=== PATIENT | male | born 1955 ===

== ENCOUNTER 2022-01-14 11:54 | Inpatient (IN) | payer MEDICARE ==
[~2022-01-14] VITALS: Ht 180.3 cm; Wt 135.0 kg
[2022-01-14 13:58] LABS: BASOPHILS ABSOLUTE AUTO 0.06 K/mm3 (0.00-0.23); BASOPHILS PERCENT AUTO 1 % (0-2); EOSINOPHILS ABSOLUTE AUTO 0.17 K/mm3 (0.00-0.68); EOSINOPHILS PERCENT AUTO 2 % (0-6); Hematocrit 32.8 % (37.0-53.0); Hemoglobin 10.8 g/dL (13.5-17.5); IMMATURE GRAN ABSOLUTE AUTO 0.07 K/mm3 (0.00-0.10); IMMATURE GRAN PERCENT AUTO 1 % (0-1); LYMPHOCYTES ABSOLUTE AUTO 0.97 K/mm3 (0.84-5.20); LYMPHOCYTES PERCENT AUTO 12 % (21-46); MONOCYTES ABSOLUTE AUTO 0.77 K/mm3 (0.16-1.47); MONOCYTES PERCENT AUTO 9 % (4-13); Mean Corpuscular HGB 32.9 pg (26.0-34.0); Mean Corpuscular HGB Conc 32.9 g/dL (31.5-36.5); Mean Corpuscular Volume 100 fL (80-100); Mean Platelet Volume 9.9 fL (9.1-12.4); NEUTROPHILS ABSOLUTE AUTO 6.25 K/mm3 (1.96-9.15); NEUTROPHILS PERCENT AUTO 75 % (41-73); Platelet Count 282 K/mm3 (150-400); RDW Coefficient Variation 14.9 % (11.7-14.2); RDW Standard Deviation 54.2 fL (35.1-46.3); Red Blood Cell Count 3.28 M/mm3 (4.30-5.90); White Blood Cell Count 8.29 K/mm3 (4.00-11.30)
[2022-01-14 14:20] LABS: Albumin, Blood 3.1 g/dL (3.4-5.0); Anion Gap 7 mmol/L (6-16); Blood Urea Nitrogen 58 mg/dL (8-24); Bun/Creatinine Ratio 7.6 (12.0-20.0); CO2, Blood 23 mmol/L (21-32); CPK Creatine Kinase 175 U/L (39-308); Calcium, Blood 8.9 mg/dL (8.5-10.1); Chloride, Blood 108 mmol/L (98-108); Creatinine, Blood 7.59 mg/dL (0.60-1.20); Glomerular Filtration Rate 7 (60-); Glucose, Blood 164 mg/dL (70-99); Phosphorus, Blood 3.6 mg/dL (2.5-4.9); Potassium, Blood 5.4 mmol/L (3.5-5.5); Sodium, Blood 138 mmol/L (136-145); Uric Acid, Blood 5.6 mg/dL (3.5-7.2)
[2022-01-14 14:23] LABS: Albumin, Blood 3.1 g/dL (3.4-5.0); Anion Gap 7 mmol/L (6-16); Blood Urea Nitrogen 57 mg/dL (8-24); Bun/Creatinine Ratio 7.9 (12.0-20.0); CO2, Blood 21 mmol/L (21-32); Chloride, Blood 109 mmol/L (98-108); Creatinine, Blood 7.26 mg/dL (0.60-1.20); Glomerular Filtration Rate 8 (60-); Glucose, Blood 166 mg/dL (70-99); Phosphorus, Blood 3.6 mg/dL (2.5-4.9); Potassium, Blood 5.4 mmol/L (3.5-5.5); Sodium, Blood 137 mmol/L (136-145)
--- NOTE | 2022-01-14 17:54 | NUR ---
1345 - PT ARRIVED FROM [facility]IA [facility]. REPORT RECEIVED FROM SENDING HOSPITAL RN AND [facility] STAFF. PT ORIENTED X4 ON ARRIVAL, SLIGHT HYPERTENSIVE WHICH HAS BEEN TREND. INDEPENDENT IN ROOM. PT ORIENTED TO ROOM AND CALL LIGHT, VITALS OBTAINED AND TELEMETRY PLACED ON PT. NOTIFIED DR. ALMENDAREZ VIA PHONE OF PATIENT ARRIVAL.
[2022-01-14 18:01] LABS: Eosinophils-Raw #,Urine 0
[2022-01-14 19:00] LABS: Albumin, Blood 3.3 g/dL (3.4-5.0); Albumin/Globulin Ratio 0.8 (0.8-1.8); Bilirubin, Direct 0.1 mg/dL (0.0-0.3); Bilirubin, Indirect 0.2 mg/dL (0.1-0.7); Bilirubin, Total 0.3 mg/dL (0.1-1.0); Globulin, Blood 3.9 g/dL (2.2-4.0); Total Protein, Blood 7.2 g/dL (6.4-8.2)
[2022-01-14] MEDS ORDERED: CLIN150 PO (19:01)
[2022-01-14] MEDS ORDERED: TIZA4 PO (19:01)
[2022-01-14] MEDS ORDERED: MONT10T PO (19:02)
[2022-01-14] MEDS ORDERED: EPLE25 PO (19:02)
[2022-01-14] MEDS ORDERED: FURO80 PO (19:02)
[2022-01-14] MEDS ORDERED: CARV25 PO (19:03)
[2022-01-14] MEDS ORDERED: ALLO300 PO (19:03)
[2022-01-14] MEDS ORDERED: Hytrin1 MG PO (19:04)
[2022-01-14] MEDS ORDERED: LOSA50 PO (19:04)
[2022-01-14] MEDS ORDERED: ATOR40TA PO (19:04)
[2022-01-14] MEDS ORDERED: GABA300 PO ×2 (19:05→19:06)
[2022-01-14] MEDS ORDERED: METF500 PO (19:06)
[2022-01-14] MEDS ORDERED: FISH OIL-VIT D1 EACH PO (19:07)
[2022-01-14] MEDS ORDERED: C COMPLEX1000 M1 PO (19:07)
[2022-01-14] MEDS ORDERED: TOCO1000 PO (19:07)
[2022-01-14] MEDS ORDERED: Vitamin B-Comp1 EAC7 PO (19:08)
[2022-01-14] MEDS ORDERED: MAGNESIUM OXID500 MG PO (19:08)
[2022-01-14] MEDS ORDERED: ASPI81CH PO (19:37)
[2022-01-14] MEDS ORDERED: TRESIBA FL100 UNIT/2 SC (22:53)
[2022-01-15 08:15] LABS: Albumin, Blood 3.2 g/dL (3.4-5.0); Anion Gap 13 mmol/L (6-16); Blood Urea Nitrogen 58 mg/dL (8-24); Bun/Creatinine Ratio 8.5 (12.0-20.0); CO2, Blood 21 mmol/L (21-32); Calcium, Blood 9.2 mg/dL (8.5-10.1); Chloride, Blood 104 mmol/L (98-108); Creatinine, Blood 6.82 mg/dL (0.60-1.20); Glomerular Filtration Rate 8 (60-); Glucose, Blood 211 mg/dL (70-99); Magnesium, Blood 2.5 mg/dL (1.6-2.4); Phosphorus, Blood 4.3 mg/dL (2.5-4.9); Potassium, Blood 4.9 mmol/L (3.5-5.5); Sodium, Blood 138 mmol/L (136-145)
--- NOTE | 2022-01-15 17:10 | NUR ---
SHIFT SUMMARY PT HAS BEEN RESTING QUIETLY IN ROOM, THEY HAVE SPENT MOST OF THE DAY UP IN THE CHAIR. PT HAS AMBULATED INDEPENDENTLY TO RESTROOM. PT HAS DENIED C/O PAIN OR DISCOMFORT. BLOOD PRESSURE CAME DOWN TO 138/67 AFTER PO MEDICATION.
--- NOTE | 2022-01-15 22:19 | NUR ---
CARE ASSUMPTION: PATIENT A&O X4, SITTING IN CHAIR, VS WNL ON RA. HS CBG 291. PATIENT INDEPENDENT IN ROOM. 24 HR URINE COLLECTION IN PROGRESS - COLLECTION ICE REPLACED AND ADDITIONAL JUGS BROUGHT TO ROOM. PATIENT PLEASANT AND COOPERATIVE WITH CARE. CALL LIGHT IN REACH.
[2022-01-16 04:14] LABS: BASOPHILS ABSOLUTE AUTO 0.05 K/mm3 (0.00-0.23); BASOPHILS PERCENT AUTO 1 % (0-2); EOSINOPHILS ABSOLUTE AUTO 0.34 K/mm3 (0.00-0.68); EOSINOPHILS PERCENT AUTO 4 % (0-6); Hematocrit 32.3 % (37.0-53.0); IMMATURE GRAN ABSOLUTE AUTO 0.05 K/mm3 (0.00-0.10); IMMATURE GRAN PERCENT AUTO 1 % (0-1); LYMPHOCYTES ABSOLUTE AUTO 1.12 K/mm3 (0.84-5.20); LYMPHOCYTES PERCENT AUTO 14 % (21-46); MONOCYTES ABSOLUTE AUTO 0.74 K/mm3 (0.16-1.47); MONOCYTES PERCENT AUTO 9 % (4-13); Mean Corpuscular HGB 33.3 pg (26.0-34.0); Mean Corpuscular HGB Conc 34.1 g/dL (31.5-36.5); Mean Corpuscular Volume 98 fL (80-100); Mean Platelet Volume 10.2 fL (9.1-12.4); NEUTROPHILS ABSOLUTE AUTO 5.87 K/mm3 (1.96-9.15); NEUTROPHILS PERCENT AUTO 72 % (41-73); Platelet Count 292 K/mm3 (150-400); RDW Coefficient Variation 14.8 % (11.7-14.2); White Blood Cell Count 8.17 K/mm3 (4.00-11.30)
[2022-01-16 04:30] LABS: Albumin, Blood 3.3 g/dL (3.4-5.0); Anion Gap 9 mmol/L (6-16); Blood Urea Nitrogen 64 mg/dL (8-24); Bun/Creatinine Ratio 10.5 (12.0-20.0); CO2, Blood 26 mmol/L (21-32); Calcium, Blood 9.2 mg/dL (8.5-10.1); Chloride, Blood 102 mmol/L (98-108); Glomerular Filtration Rate 9 (60-); Glucose, Blood 251 mg/dL (70-99); Magnesium, Blood 2.6 mg/dL (1.6-2.4); Phosphorus, Blood 5.6 mg/dL (2.5-4.9); Sodium, Blood 137 mmol/L (136-145)
--- NOTE | 2022-01-16 05:25 | NUR ---
SHIFT SUMMARY: PATIENT DENIES PAIN OR DISCOMFORT, INDEPENDENT IN ROOM, STAYED IN RECLINER EXCEPT TO TOILET. 24-HR URINE COLLECTION IN PROGRESS - ICE REPLACED NEEDED. MEDICATED PER EMAR. PLEASANT AND COOPERATIVE WITH CARE. MAKES NEEDS KNOWN DURING ROUNDING, BUT HAS NOT USED CALL LIGHT. CALL LIGHT IN REACH. WILL CONTINUE TO MONITOR UNTIL REPORT TO DAY RN.
[2022-01-16 11:40] LABS: Protein, Urine Quantitative 136.2 mg/dL (0.0-11.9)
--- NOTE | 2022-01-16 16:57 | NUR ---
SHIFT SUMMARY PT HAS BEEN INDEPENDENT ROOM. PT HAS BEEN UP TO THE RESTROOM NEEDED. THEY SPENT A MAJORITY OF THE DAY UP IN THE CHAIR. VITAL SIGNS HAVE REMAINED STABLE WITH NO CHANGES IN CONDITION. PT HAS EXPRESSED CONCERN OVER TRAVEL ARRANGEMENTS TO GET HOME AT DISCHARGE.
--- NOTE | 2022-01-16 20:58 | NUR ---
CARE ASSUMPTION: PATIENT IN CHAIR, A&O X4, VS WNL ON RA. URINE COLLECTION WAS COMPLETE THIS MORNING - ORDERS TO CONTINUE STRICT I/O. PATIENT DENIES CHEST PAIN, SOB, OR OTHER DISCOMFORT. CALL LIGHT IN REACH.
[2022-01-17 04:25] LABS: BASOPHILS ABSOLUTE AUTO 0.06 K/mm3 (0.00-0.23); BASOPHILS PERCENT AUTO 1 % (0-2); EOSINOPHILS ABSOLUTE AUTO 0.28 K/mm3 (0.00-0.68); EOSINOPHILS PERCENT AUTO 3 % (0-6); Hematocrit 31.2 % (37.0-53.0); Hemoglobin 10.7 g/dL (13.5-17.5); IMMATURE GRAN ABSOLUTE AUTO 0.08 K/mm3 (0.00-0.10); IMMATURE GRAN PERCENT AUTO 1 % (0-1); LYMPHOCYTES ABSOLUTE AUTO 1.44 K/mm3 (0.84-5.20); LYMPHOCYTES PERCENT AUTO 15 % (21-46); MONOCYTES ABSOLUTE AUTO 0.82 K/mm3 (0.16-1.47); MONOCYTES PERCENT AUTO 9 % (4-13); Mean Corpuscular HGB 33.4 pg (26.0-34.0); Mean Corpuscular HGB Conc 34.3 g/dL (31.5-36.5); Mean Corpuscular Volume 98 fL (80-100); Mean Platelet Volume 10.6 fL (9.1-12.4); NEUTROPHILS ABSOLUTE AUTO 6.98 K/mm3 (1.96-9.15); NEUTROPHILS PERCENT AUTO 72 % (41-73); Platelet Count 293 K/mm3 (150-400); RDW Coefficient Variation 14.7 % (11.7-14.2); RDW Standard Deviation 52.4 fL (35.1-46.3); White Blood Cell Count 9.66 K/mm3 (4.00-11.30)
[2022-01-17 05:11] LABS: Albumin, Blood 3.4 g/dL (3.4-5.0); Anion Gap 10 mmol/L (6-16); Blood Urea Nitrogen 74 mg/dL (8-24); CO2, Blood 25 mmol/L (21-32); Calcium, Blood 9.3 mg/dL (8.5-10.1); Chloride, Blood 100 mmol/L (98-108); Creatinine, Blood 5.69 mg/dL (0.60-1.20); Glomerular Filtration Rate 10 (60-); Glucose, Blood 235 mg/dL (70-99); Magnesium, Blood 2.5 mg/dL (1.6-2.4); Phosphorus, Blood 5.7 mg/dL (2.5-4.9); Potassium, Blood 4.6 mmol/L (3.5-5.5); Sodium, Blood 135 mmol/L (136-145)
--- NOTE | 2022-01-17 05:58 | NUR ---
SHIFT SUMMARY: PATIENT A&O X4, VS WNL, DENIES CHEST PAIN/SOB/N/V/D OR OTHER DISCOMFORT. PATIENT INDEPENDENT IN ROOM. MAINTAINED STRICT I/OS. PLEASANT AND COOPERATIVE WITH CARE. SLEPT IN RECLINER BUT DECLINES ELEVATING FEET. NO NOTABLE IMPROVEMENT IN BLE EDEMA. MEDICATED PER EMAR. CALL LIGHT IN REACH. WILL CONTINUE TO MONITOR UNTIL REPORT TO DAY RN.
--- NOTE | 2022-01-17 17:35 | NUR ---
SHIFT SUMMARY PT HAS BEEN RESTING QUIETLY IN ROOM. PT SPENT A MAJORITY OF THE DAY UP IN THE CHAIR, THEY AMBULATED INDEPENDENTLY TO THE RESTROOM NEEDED. PT CALLED APPROPRIATELY FOR ASSISTANCE AND WAS COOPERATIVE WITH ALL CARE. PT DECLINED A SHOWER CITING CONCERNS OVER LOWER EXTREMITY CELLULITIS, THIS RN ATTEMPTED TO EDUCATE PT AND ASSUAGE THEIR CONCERNS. VITAL SIGNS STABLE, NO OTHER CHANGES IN CONDITION.
--- NOTE | 2022-01-18 00:01 | NUR ---
CARE ASSUMPTION: PATIENT IN CHAIR, DECLINES RAISING LEGS. INDEPENDENT IN ROOM. VS WNL. MED NO TELE STATUS. A&O X4. WANTS TO ASK DR. ROY QUESTIONS IN THE AM REGARDING HIS LENGTH OF STAY AND CARE PLAN. CALL LIGHT IN REACH.
[2022-01-18 06:25] LABS: Hematocrit 33.2 % (37.0-53.0); Hemoglobin 11.2 g/dL (13.5-17.5)
[2022-01-18 06:35] LABS: Albumin, Blood 3.6 g/dL (3.4-5.0); Anion Gap 12 mmol/L (6-16); Blood Urea Nitrogen 87 mg/dL (8-24); Bun/Creatinine Ratio 14.7 (12.0-20.0); CO2, Blood 26 mmol/L (21-32); Calcium, Blood 9.2 mg/dL (8.5-10.1); Chloride, Blood 98 mmol/L (98-108); Creatinine, Blood 5.91 mg/dL (0.60-1.20); Glomerular Filtration Rate 10 (60-); Glucose, Blood 173 mg/dL (70-99); Magnesium, Blood 2.6 mg/dL (1.6-2.4); Phosphorus, Blood 6.3 mg/dL (2.5-4.9); Potassium, Blood 4.1 mmol/L (3.5-5.5); Sodium, Blood 136 mmol/L (136-145)
[2022-01-18 15:10] LABS: IMMUNOGLOBULIN A, QN, SERUM 204 mg/dL (61-437); IMMUNOGLOBULIN G, QN, SERUM 757 mg/dL (603-1613); IMMUNOGLOBULIN M, QN, SERUM 34 mg/dL (20-172)
--- NOTE | 2022-01-18 17:45 | NUR ---
SHIFT SUMMARY; ASSUMED CARE AT 0700. A/A/OX4 DURING SHIFT. SAT IN RECLINER MOST OF DAY. SHOWER TODAY AND LINEN CHANGE. RIGHT LEG CELLULITIS WITH REDNESS DECREASING. NON WHEEPING EDEMA BILATERALLY. PT STATES EDEMA IS MUCH IMPROVED FROM PREVIOUS DAYS. ENCOURAGED ELEVATING LEGS. INSULIN PER EMAR. VSS, NO ACUTE MEDICAL CHANGES DURING SHIFT. WILL CONTINUE TO MONITOR AND TREAT UNTIL CHANGE OF SHIFT.
--- NOTE | 2022-01-18 20:29 | NUR ---
CARE ASSUMPTION: PATIENT IN CHAIR, VS WNL. IV INFILTRATED IN PREVIOUS SHIFT. CALLED PHARMACY - NO SPECIAL TX FOR LASIX OR ANCEF INFILTRATION. PATIENT HAS NO OTHER COMPLAINTS. NO CHANGES FROM PREVIOUS SHIFT. MEDICATED PER EMAR. CALL LIGHT IN REACH.
--- NOTE | 2022-01-19 00:22 | NUR ---
UPDATE: ABX ADMINISTERED LATE R/T NO IV ACCESS. POWERGLIDE NOW IN HEBER.
[2022-01-19 05:10] LABS: Hematocrit 32.9 % (37.0-53.0); Hemoglobin 11.1 g/dL (13.5-17.5)
--- NOTE | 2022-01-19 05:42 | NUR ---
SHIFT SUMMARY: PATIENT INDEPENDENT IN ROOM, USING URINAL IN BATHROOM, VS WNL, DENIES PAIN/SOB/N/V. MEDICATED PER EMAR. NO ADVERSE EVENTS THIS SHIFT. PATIENT IN CHAIR WITH LEGS RAISED AND CALL LIGHT IN REACH. WILL CONTINUE TO MONITOR UNTIL REPORT TO DAY RN.
[2022-01-19 05:55] LABS: Albumin, Blood 3.5 g/dL (3.4-5.0); Anion Gap 10 mmol/L (6-16); Blood Urea Nitrogen 97 mg/dL (8-24); Bun/Creatinine Ratio 16.7 (12.0-20.0); CO2, Blood 28 mmol/L (21-32); Chloride, Blood 96 mmol/L (98-108); Creatinine, Blood 5.82 mg/dL (0.60-1.20); Glomerular Filtration Rate 10 (60-); Glucose, Blood 182 mg/dL (70-99); Magnesium, Blood 2.6 mg/dL (1.6-2.4); Phosphorus, Blood 6.5 mg/dL (2.5-4.9); Potassium, Blood 3.8 mmol/L (3.5-5.5); Sodium, Blood 134 mmol/L (136-145)
[2022-01-19 11:11] LABS: M-SPIKE, % Not Observed % (Not Observed); PROTEIN,TOTAL,URINE 107.7 mg/dL (Not Estab.)
[2022-01-19 13:11] LABS: ANTIMYELOPEROXIDASE (MPO) ABS <0.2 units (0.0-0.9); ANTIPROTEINASE 3 (PR-3) ABS <0.2 units (0.0-0.9); ATYPICAL PANCA <1:20 titer (Neg:<1:20); CYTOPLASMIC (C-ANCA) <1:20 titer (Neg:<1:20); PERINUCLEAR (P-ANCA) <1:20 titer (Neg:<1:20)
--- NOTE | 2022-01-19 18:05 | NUR ---
SHIFT SUMMARY; ASSUMED CARE AT 0700. A/A/OX3, PERIODS OF SLIGHT CONFUSION WHEN WAKING. SAT IN RECLINER MOST OF SHIFT. INSULIN PER EMAR. PLEASANT AND COOPERATIVE WITH CARE. ENCOURAGED ELEVATING LEGS FOR EDEMA. NO ACUTE MEDICAL CHANGES, WILL CONTINUE TO MONITOR AND TREAT UNTIL CHANGE OF SHIFT.
[2022-01-20 04:07] LABS: Hematocrit 33.4 % (37.0-53.0); Hemoglobin 11.2 g/dL (13.5-17.5)
--- NOTE | 2022-01-20 04:09 | NUR ---
SHIFT SUMMARY NO ACUTE CHANGES THIS SHIFT. VSS. AXO. POWERGLIDE PATENT. PT WITHOUT COMPLAINTS. STATED BACK/JIPS WERE HURTING, TOOK PATIENT FOR WALK AROUND TO WHICH PT WAS VERY THANKFUL FOR. THIS RN ENCOURAGED PT TO DO THIS AT LEAST 1-2XS PER SHIFT TO MAINTAIN MOBILITY AND HELP WITH ACHES/PAINS WELL PRSSURE INJURY PREVENTION. PT WITHIN FLUID RESTRICTION PARAMETERS. HAS BEEN FAIRLY INDEPENDENT IN ROOM.
[2022-01-20 04:24] LABS: Albumin, Blood 3.5 g/dL (3.4-5.0); Anion Gap 10 mmol/L (6-16); Blood Urea Nitrogen 97 mg/dL (8-24); Bun/Creatinine Ratio 17.3 (12.0-20.0); CO2, Blood 30 mmol/L (21-32); Calcium, Blood 8.9 mg/dL (8.5-10.1); Chloride, Blood 95 mmol/L (98-108); Glomerular Filtration Rate 11 (60-); Glucose, Blood 178 mg/dL (70-99); Magnesium, Blood 2.8 mg/dL (1.6-2.4); Phosphorus, Blood 6.9 mg/dL (2.5-4.9); Potassium, Blood 3.7 mmol/L (3.5-5.5); Sodium, Blood 135 mmol/L (136-145)
--- NOTE | 2022-01-20 18:45 | NUR ---
SHIFT SUMMARY PT IS ALERT AND ORIENTED X 4, HE IS PLEASANT AND COOPERATIVE W/ CARE. VSS, SPO2 >95% VIA ROOM AIR. HE HAS DENIED FEELING SOB/ NAUSEA. HE HAS SAT UP IN RECLINER CHAIR T/O SHIFT AND IS INDEPENDENT TO BATHROOM. MEPATEL AND ABSORBANT PADS IN PLACE OVER R INNER FOOT WOUND AND R CALF WOUND. HE HAS DENIED FEELINGS OF CHEST PAIN/PRESSURE. HE REPORTED BACK AND HIP ACHES. HE IS ON A 1L FLUID RESTRICTION. PG IN [facility] IS SALINE LOCKED. PT NOW IN CHAIR, CALL LIGHT IN REACH. WILL CONTINUE TO MONITOR UNTIL REPORT GIVEN.
[2022-01-21 04:15] LABS: Hematocrit 34.1 % (37.0-53.0); Hemoglobin 11.6 g/dL (13.5-17.5)
[2022-01-21 04:34] LABS: Albumin, Blood 3.6 g/dL (3.4-5.0); Anion Gap 11 mmol/L (6-16); Blood Urea Nitrogen 107 mg/dL (8-24); Bun/Creatinine Ratio 21.1 (12.0-20.0); CO2, Blood 29 mmol/L (21-32); Calcium, Blood 9.3 mg/dL (8.5-10.1); Chloride, Blood 92 mmol/L (98-108); Creatinine, Blood 5.06 mg/dL (0.60-1.20); Glomerular Filtration Rate 12 (60-); Glucose, Blood 287 mg/dL (70-99); Magnesium, Blood 2.8 mg/dL (1.6-2.4); Phosphorus, Blood 7.3 mg/dL (2.5-4.9); Potassium, Blood 3.8 mmol/L (3.5-5.5); Sodium, Blood 132 mmol/L (136-145)
--- NOTE | 2022-01-21 05:35 | NUR ---
END OF SHIFT SUMMARY NEURO: A&OX4. FOLLOWS COMMANDS. WEAK BUT LIMBS OVERCOME RESISTANCE. PT DENIES NUMBNESS/TINGLING, HEADACHE OR VISION CHANGES. PUPILS PERRLA CARDIAC: SINUS BRADYCARDIA. HR 50s. NORMOTENSIVE. BLOOD PRESSURE AVERAGE 130s/70s MAP >65. CAP REFILL < 3 SEC. PT DENIES CHEST PAIN. RESPIRATORY: WNL. PT DENIES SOB/DYSPNEA. RA SATTING >92%. BREATH SOUNDS CLEAR BILATERALLY. GI/: CONTINENT OF BOWEL AND BLADDER. NORMOACTIVE BOWEL SOUNDS APPRECIATED. PT DENIES TENDERNESS TO ABDOMEN WITH PALPATION. ONE BOWEL MOVEMENT OVERNIGHT. PUTTING OUT ADEQUATE AMOUNTS OF CLEAR YELLOW URINE. MUSCULOSKELETAL: INDEPENDENT IN ROOM. LIMBS ABLE TO OVERCOME RESISTANCE. PT CLAIMS CHRONIC PAIN TO JOINTS AND BACK WHICH SLOWS HIS MOVEMENTS. PSYCHOSOCIAL: WORRIED ABOUT . HAIL STORM HIT HOUSE AND THEY LOST POWER. SLEEPING IN HOSPITAL PARKING LOT OF [place] ON [facility]. PAIN: MANAGED WITH TRAMADOL X1 OVERNIGHT
--- NOTE | 2022-01-21 18:56 | NUR ---
DAY SHIFT SUMMARY PT ORIENTED X4, VSS PER PT TREND. POC GLUCOSE IN 200S, SOME CHRONIC PAIN IN AM WITH TRAMADOL PROVIDING RELIEF (SEE EMAR FOR DETAILS). ON IV LASIX AND MONITORING CREAT. DAILY. AND DOG TO BEDSIDE WHICH LIFTED PT SPIRITS. PM COREG HELD DUE TO HR 52. WILL PASS ON TO NOC RN
--- NOTE | 2022-01-22 00:03 | NUR ---
CARE ASSUMPTION: PATIENT IN CHAIR, A&O X4, PLEASANT AND COOPERATIVE, VS WNL. MEDICATED PER EMAR. CALL LIGHT IN REACH.
[2022-01-22 05:05] LABS: Hematocrit 33.7 % (37.0-53.0); Hemoglobin 11.2 g/dL (13.5-17.5)
[2022-01-22 05:22] LABS: Albumin, Blood 3.6 g/dL (3.4-5.0); Anion Gap 9 mmol/L (6-16); Blood Urea Nitrogen 116 mg/dL (8-24); Bun/Creatinine Ratio 23.7 (12.0-20.0); CO2, Blood 32 mmol/L (21-32); Calcium, Blood 9.3 mg/dL (8.5-10.1); Chloride, Blood 93 mmol/L (98-108); Glomerular Filtration Rate 12 (60-); Glucose, Blood 259 mg/dL (70-99); Magnesium, Blood 2.8 mg/dL (1.6-2.4); Phosphorus, Blood 6.9 mg/dL (2.5-4.9); Sodium, Blood 134 mmol/L (136-145)
--- NOTE | 2022-01-22 06:54 | NUR ---
SHIFT SUMMARY: PATIENT VS WNL, MEDICATED PER EMAR. PATIENT INDEPENDENT IN ROOM. POWERGLIDE DRAWS AND FLUSHES POSITIONALLY. PATIENT REPORTED "PAIN IN BUTT" THIS AM. DID NOT WANT TO STAND FOR RECTAL EXAM. DESCRIPTION OF PAIN AND SOURCE SOUNDED LIKE POSSIBLE HEMORRHOID. PATIENT STATES HE IS MORE ACTIVE AT HOME AND BMS HAVE BEEN DIFFICULT TO PASS. PATIENT IN RECLINER WITH CALL LIGHT IN REACH. WILL CONTINUE TO MONITOR UNTIL REPORT TO DAY RN.
--- NOTE | 2022-01-22 18:35 | NUR ---
DAY SHIFT SUMMARY PT ORIENTED X4, TALKATIVE AND PLEASANT. VSS PER PT TREND, PO COREG HELD DUE TO HR BELOW 60. PATIENT VOIDING ADQUATELY, ON IV LASIX. FAMILY AT BEDSIDE MOST OF THE DAY. PT IN GOOD SPIRITS. WILL PASS ON TO NOC RN.
--- NOTE | 2022-01-22 23:46 | NUR ---
CARE ASSUMPTION: PATIENT A&O X4, VS WNL, AND SITTING IN CHAIR WITH LEGS DEPENDENT. PATIENT'S LOWER LEG EDEMA NOTABLY IMPROVED FROM PREVIOUS SHIFTS. CBG 332 - CALLED RESIDENT PATIENT'S GLUCOSE IS CONTROLLED AT HOME AND HAS NOT BEEN CONTROLLED IN HOSPITAL WITH INCREASING CBGS EVERYDAY - RECEIVED NEW ORDERS. PATIENT TAKES 100U LONG ACTING INSULIN HS AT HOME. PLAN TO D/C WHEN CREATININE <4. MEDICATED PER EMAR. CALL LIGHT IN REACH.
[2022-01-23 04:53] LABS: Hematocrit 33.9 % (37.0-53.0); Hemoglobin 11.3 g/dL (13.5-17.5)
[2022-01-23 05:17] LABS: Albumin, Blood 3.6 g/dL (3.4-5.0); Anion Gap 11 mmol/L (6-16); Blood Urea Nitrogen 117 mg/dL (8-24); Bun/Creatinine Ratio 24.9 (12.0-20.0); CO2, Blood 31 mmol/L (21-32); Calcium, Blood 9.9 mg/dL (8.5-10.1); Chloride, Blood 91 mmol/L (98-108); Creatinine, Blood 4.69 mg/dL (0.60-1.20); Glomerular Filtration Rate 13 (60-); Glucose, Blood 286 mg/dL (70-99); Magnesium, Blood 2.7 mg/dL (1.6-2.4); Phosphorus, Blood 6.8 mg/dL (2.5-4.9); Potassium, Blood 3.6 mmol/L (3.5-5.5); Sodium, Blood 133 mmol/L (136-145)
--- NOTE | 2022-01-23 06:26 | NUR ---
SHIFT SUMMARY: PATIENT VS WNL, A&O X4, DENIES N/V/D/SOB/CHEST PAIN. INDEPENDENT IN ROOM, USING URINAL FOR ACCURATE I/O. BLE EDEMA IMPROVING BUT PATIENT MAINTAINS DEPENDENT POSITION IN RECLINER. REQUESTED SHOWER THIS AM AND SHOWERED SELF. CREATININE >4.0 - PLAN TO D/C WHEN <4.0. POWERGLIDE FLUSHES POSITIONALLY BUT DID NOT DRAW FOR AM LABS. CALL LIGHT IN REACH. WILL CONTINUE TO MONITOR UNTIL REPORT TO DAY RN.
[2022-01-23] MEDS ORDERED: Calcium Acetat667 MG PO (11:59)
[2022-01-23] MEDS ORDERED: CEPH500 PO (11:59)
[2022-01-23] MEDS ORDERED: PROBIOTIC1 EA13 PO (12:00)
[2022-01-23] MEDS ORDERED: HUMULIN R100 UNIT/2 SC (12:00)
[2022-01-23] MEDS ORDERED: Vitamin B Comple1 EA PO (12:01)
[2022-01-23] MEDS ORDERED: CATAPRES0.1 MG PO (12:23)
--- NOTE | 2022-01-23 13:19 | NUR ---
PT DISCHARGED THE PT VERBALIZED UNDERSTANDING OF THE DC INSTRUCTIONS. THE PTS PRESCRIPTIONS WERE FAXED TO [facility] IN [place] REQUESTED. THE PT WAS SCHEDULED FOR A FOLLOW UP APPOINTMENT WITH DR. ROY PRIOR TO DISCHARGE. PT WAS TRANSFERED VIA WHEELCHAIR ACCOMPANIED BY THE CRM ANALYST AND HIS . BELONGINGS RELEASED TO HIS
== END 2022-01-23 13:17 | disposition home or self-care (01) | DRG 683 ==
LOC: PCU 11:54
PROVIDERS: Internal Medicine Nephrology; ADMIT Family Medicine
DX: N17.9 Acute kidney failure, unspecified (principal); E87.1 Hypo-osmolality and hyponatremia; E87.29 Other acidosis; L03.115 Cellulitis of right lower limb; Z68.41 Body mass index [BMI] 40.0-44.9, adult; I12.9 Hypertensive chronic kidney disease with stage 1 through stage 4 chronic kidney disease, or unspecified chronic kidney disease; N18.9 Chronic kidney disease, unspecified; D63.1 Anemia in chronic kidney disease; N25.81 Secondary hyperparathyroidism of renal origin; E87.5 Hyperkalemia; G47.33 Obstructive sleep apnea (adult) (pediatric); G47.00 Insomnia, unspecified; E11.65 Type 2 diabetes mellitus with hyperglycemia; E66.01 Morbid (severe) obesity due to excess calories; E88.09 Other disorders of plasma-protein metabolism, not elsewhere classified; E83.39 Other disorders of phosphorus metabolism; E11.22 Type 2 diabetes mellitus with diabetic chronic kidney disease; Z99.89 Dependence on other enabling machines and devices; Z98.890 Other specified postprocedural states; Z88.8 Allergy status to other drugs, medicaments and biological substances; Z79.899 Other long term (current) drug therapy
CPT/HCPCS: 36415; 74176; 76770; 80069; 80076; 81050; 82550; 82947; 83516; 83520; 83735; 83880; 84100; 84156; 84166; 84550; 85014; 85018; 85025; 86037; 86038; 86334; 86335; 87205; 93306; 94660; 94762; A9270; C1751; J0690; J1644; J1815; J1940

== ENCOUNTER → 2024-09-03 | Outpatient (CLI) | payer MEDICARE ==
[~2024-09-03] MED LIST: ALLO300 PO; ASPI81CH PO; ATOR40TA PO; C COMPLEX1000 M1 PO; CARV25 PO; CATAPRES0.1 MG PO; CEPH500 PO; CLIN150 PO; Calcium Acetat667 MG PO; EPLE25 PO; FISH OIL-VIT D1 EACH PO; FURO80 PO; GABA300 PO; HUMULIN R100 UNIT/2 SC; Hytrin1 MG PO; LOSA50 PO; MAGNESIUM OXID500 MG PO; METF500 PO; MONT10T PO; PROBIOTIC1 EA13 PO; TIZA4 PO; TOCO1000 PO; TRESIBA FL100 UNIT/2 SC; Vitamin B Comple1 EA PO; Vitamin B-Comp1 EAC7 PO
[2024-09-03 11:03] LABS: Microalbumin, Urine Quant. 4330.000 mg/L (0.000-20.000); Protein, Urine Quantitative 600.9 mg/dL (0.0-11.9)
== END | disposition home or self-care (01) ==
LOC: LAB SHORT 08:34 → LAB 08:34
PROVIDERS: Internal Medicine Nephrology
DX: N18.4 Chronic kidney disease, stage 4 (severe) (principal); D63.1 Anemia in chronic kidney disease; N25.81 Secondary hyperparathyroidism of renal origin; E55.9 Vitamin D deficiency, unspecified; R76.9 Abnormal immunological finding in serum, unspecified; R94.5 Abnormal results of liver function studies; R94.6 Abnormal results of thyroid function studies
CPT/HCPCS: 82043; 82570; 84156

== ENCOUNTER 2024-11-25 11:38 | Inpatient (IN) | payer MEDICARE ==
[~2024-11-25] VITALS: Ht 180.3 cm; Wt 127.1 kg
[~2024-11-25 11:38] MED LIST changes: +Alph-E-Mixed400 UNIT PO; -TOCO1000 PO; -TRESIBA FL100 UNIT/2 SC; +TRESIBA FL200 UNIT/2 SC
[2024-11-25 16:22] LABS: Source, Urine Clean Catch
[2024-11-25 16:27] LABS: Bilirubin, Urine Neg (Neg); Glucose Qualitative, Urine 2+ (Neg); Ketones, Urine Neg (Neg); Leukocyte Esterase, Urine Neg (Neg); Protein, Urine 4+ (Neg); Specific Gravity, Urine 1.015 (1.003-1.022); Urobilinogen, Urine NORM (Normal)
[2024-11-25 16:40] LABS: Color, Urine Pale Yellow (P-Yellow)
[2024-11-25] MEDS ORDERED: FLU VACC TS2025(65UP)/MF59C/PF 45 MCG/0.5 ML SYRINGE IM SCH (17:55)
[2024-11-25 19:47] VITALS: BP 164/65
[2024-11-25] MEDS ORDERED: ALLO100 PO (19:56)
[2024-11-25] MEDS ORDERED: Hytrin2 MG PO (19:57)
[2024-11-25] MEDS ORDERED: BUME2 PO (19:58)
[2024-11-25] MEDS ORDERED: LOSA50 PO (20:00)
[2024-11-25] MEDS ORDERED: FENO48 PO (20:02)
[2024-11-25] MEDS ORDERED: Heparin Sodium,Porcine 5,000 UNIT/0.5 ML SDV SC SCH (21:00)
[2024-11-25] MEDS ORDERED: Insulin Human Lispro 100 Units/ML 3ML Syringe SC SCH (21:00)
[2024-11-25] MEDS ORDERED: THERA-D2000 UNIT PO (21:07)
[2024-11-25] MEDS ORDERED: ENBREL SUR50 MG/1 M1 SC (21:08)
[2024-11-25] MEDS ORDERED: ZEPBOUND12.5 MG/0. SC (21:10)
[2024-11-25] MEDS ORDERED: Darbepoetin (Pharmacy Consult) SC SCH (21:50)
[2024-11-25 23:59] VITALS: BP 148/55
[2024-11-26 04:04] VITALS: BP 127/41
[2024-11-26 04:49] LABS: Hematocrit 27.3 % (37.0-53.0); Hemoglobin 8.9 g/dL (13.5-17.5)
--- NOTE | 2024-11-26 04:54 | NUR ---
SHIFT SUMMARY NOC PT A/O X 4. KAW. HAS PERSONAL MOBILITY SCOOTER IN ROOM. BP ELEVATED UPON ARRIVAL TO UNIT AND HOME DOSE OF CATAPRES GIVEN. PT HOME RX HAS BEEN RECONCILED. HS CBG 109 WITH [facility]. PT ADMIT FOR ESRD WITH PERM CATH PLACEMENT EXPECTED TODAY WITH DIALYSIS AFTERWARDS. PT HAS BEEN NPO SINCE MIDNIGHT AND HEPARIN INJECTION HELD. IR CONSULT FAXED AND DR ROY NOTIFIED AND SAID THAT THEY HAD SPOKEN TO PT IN ED EARLIER YESTERDAY. PT DID HAVE C/O OF TOP LAYER OF SUPERFICIAL SKIN MISSING ON BACK OF LLE AND CONCERNED THAT IT MAY BE INFECTED WITH CELLULITIS, PICS TAKEN. PT ON TELE SINUS RHYTHM IN 70'S. PT CURRENTLY RESTING WITH BED IN LOWEST POSITION, AND CALL LIGHT WITHIN REACH.
[2024-11-26 05:13] LABS: Albumin, Blood 2.9 g/dL (3.4-5.0); Anion Gap 9 mmol/L (3-11); Blood Urea Nitrogen 49 mg/dL (8-24); CO2, Blood 25 mmol/L (21-32); Calcium, Blood 8.9 mg/dL (8.5-10.1); Chloride, Blood 109 mmol/L (98-108); Creatinine, Blood 4.40 mg/dL (0.60-1.20); Glucose, Blood 112 mg/dL (70-99); Magnesium, Blood 2.1 mg/dL (1.6-2.4); Phosphorus, Blood 3.4 mg/dL (2.5-4.9); Potassium, Blood 3.8 mmol/L (3.5-5.5); Sodium, Blood 139 mmol/L (136-145)
[2024-11-26 07:44] VITALS: BP 142/51
[2024-11-26] MEDS ORDERED: Vitamin B Cmplx/Vit C/Folic Ac 1 Tab PO SCH (09:00)
[2024-11-26 15:27] VITALS: BP 147/60
[2024-11-26] MEDS ORDERED: Darbepoetin Alfa In Albumn Sol 60 MCG/0.3 ML Syringe SC SCH (16:00)
--- NOTE | 2024-11-26 18:30 | NUR ---
END OF SHIFT SUMMARY: PATIENT IS ALERT AND ORIENTED X4; PLEASANT AND COOPERATIVE WITH CARE. PATIENT TO BE NPO AFTER MIDNIGHT FOR PERMACATH PLACEMENT TOMORROW. PATIENT WITH NO HEPARIN ADMINISTERED TODAY D/T PROCEDURE. ALL OTHER MEDICATIONS ADMINISTERED PER EMAR. PATIENT WITH SOME MILD C/O OF SOB WITH EXERTION. DENIES CP OR PRESSURE, N/V/D, OR PAIN TODAY. PATIENT DID HAVE SHORT TIME OF FOOT CRAMPING THAT ASSISTED WITH. NO OTHER C/O THIS SHIFT. PATIENT SLEEPS IN RECLINER, CONTINUOUS BIOX IN PLACE AND CPAP IN ROOM. PATIENT WITH CALL LIGHT WITHIN REACH AND CHAIR LOCKED FOR SAFETY. WILL CONTINUE TO MONITOR UNTIL NEXT SHIFT NURSE ARRIVES AND REPORT IS GIVEN.
[2024-11-26 19:52] VITALS: BP 176/64
[2024-11-27] VITALS (7 sets, daily range): BP systolic 151–187; BP diastolic 51–71
--- NOTE | 2024-11-27 04:04 | NUR ---
SHIFT SUMMARY ADMITTED FOR ESRD, NEEDING HD. FULL CODE. PLAN IS FOR PERMACATH PLACEMENT, FOLLOWED BY DIALYSIS. HE IS A&O X4, INDEPENDENT IN ROOM, ADA DIET. I HAVE MADE HIM NPO. RENAL CONSULT IS DR. ROY. IR CONSULT IS DR. SANTOS. [facility] - MEDIUM SS. TELEMETRY: NSR @ 63 BPM. HE IS ON RA BUT WEARS HIS HOME CPAP @ HS. HE IS INDEPENDENT FOR SHORT DISTANCES, USES A WHEELCHAIR AT BASELINE FOR LONGER WALKS. BLE EDEMA 2+ NOTED.
[2024-11-27] MEDS ORDERED: NS 250 ML IV ONE (12:54)
[2024-11-27] MEDS ORDERED: Heparin Sodium 1000 Units/ML 10ML MDV ONE (12:54)
[2024-11-27] MEDS ORDERED: Midazolam HCl 1MG / ML 2ML Vial ONE (13:39)
[2024-11-27] MEDS ORDERED: FentaNYL Citrate 50 MCG/ML 2 ML Injection ONE (13:39)
[2024-11-27] MEDS ORDERED: NS 500 ML IV ONE (13:39)
[2024-11-27] MEDS ORDERED: Heparin Sodium 10,000 Units/ML 1ML MDV ONE (14:07)
[2024-11-27] MEDS ORDERED: ENBREL SUR50 MG/1 M1 SQ (16:36)
--- NOTE | 2024-11-27 20:08 | NUR ---
SUMMARY- PT VERY SLEEPY THIS AM, STATES NO SLEEP FOR DAYS. FEELS VERY COLD, CHILLED TO THE BONE THIS AM, WRAPPED IN MANY WARM BLANKETS, KEPT NPO FOR PROCEDURE. PLACED HOME BIPAP AND CONT PULSE AND ALLOWED TO SLEEP BEFORE CATH PLACEMENT. PERMATATH PLACED AROUND 1330 AND RETURNED 1430. VSS, PT HAD 1MG VERSED AND 50MG FENT, CAME BACK FROM PROCEDURE AWAKE, ALERT, HAPPY AND STATES "I THOUGHT I JUST CAME BACK FROM CAMPING IN THE [place] WITH MY FAMILY". FEELS WARM NOW, AWAKE AND INTERACTIVE AND HAPPY, HIS STATES HE IS LIKE A NEW PERSON. PT SAT UP IN THE CHAIR THROUGH OUT THE REST OF THE SHIFT. TOLERATING SOLID FOOD AND FLUIDS. VSS. MOD EDEMA IN BLE, GAVE BUMEX 2MG ORAL FOR REPORTED INCREASE SWELLING IN LEGS AND WEAPING IN RLE- WRAPPED WITH COBAN/BOB WRAP BEFORE RN COULD ASSESS. PLAN IS TO HAVE DIALYSIS TOMORROW AM AROUND 1000. DR ROY AWARE THAT PERMACATH WAS PLACED AND HAD LAB CHECK KCL LEVEL BEFORE DECIDING TO HAVE HD TOMORROW VS AM. REPORTED TO KINA FRAGA RN
[2024-11-28] VITALS (17 sets, daily range): BP systolic 134–199; BP diastolic 41–81
--- NOTE | 2024-11-28 04:23 | NUR ---
SHIFT SUMMARY PATIENT ADMITTED FOR ESRD NEEDING DIALYSIS. PERMACATH WAS PLACED ON DAYSHIFT, PATIENT STATES NO PAIN, SITE APPEARS NOT HAVE MINIMAL SWELLING AND NO BLEEDING OR BRUISING NOTED. VSS. PATIENT ALERT AND ORIENTED X4 AND INDEPENDENT IN HIS ROOM. PATIENT RESTING MOST OF THE SHIFT. BED IN LOWEST POSITION FOR SAFETY. CALL LIGHT WITHIN REACH. BED RAILS UP X2.
[2024-11-28 06:11] LABS: Hematocrit 27.7 % (37.0-53.0); Hemoglobin 9.0 g/dL (13.5-17.5)
[2024-11-28 06:28] LABS: Albumin, Blood 2.9 g/dL (3.4-5.0); Anion Gap 7 mmol/L (3-11); Blood Urea Nitrogen 61 mg/dL (8-24); CO2, Blood 26 mmol/L (21-32); Calcium, Blood 8.9 mg/dL (8.5-10.1); Chloride, Blood 109 mmol/L (98-108); Creatinine, Blood 4.66 mg/dL (0.60-1.20); Glucose, Blood 135 mg/dL (70-99); Magnesium, Blood 2.2 mg/dL (1.6-2.4); Phosphorus, Blood 3.7 mg/dL (2.5-4.9); Potassium, Blood 4.0 mmol/L (3.5-5.5); Sodium, Blood 138 mmol/L (136-145)
--- NOTE | 2024-11-28 08:43 | NUR ---
PT TO DIALYSIS.
[2024-11-28] MEDS ORDERED: Fenofibrate 67 MG Cap PO SCH (09:00)
[2024-11-28 16:32] LABS: HEPATITIS B SURFACE ANTIBODY <3.10 IU/L
--- NOTE | 2024-11-28 18:20 | NUR ---
SHIFT SUMMARY PT IS A/OX4. INDEPENDENT IN THE ROOM. DIALYSIS THIS MORNING, TOLERATING WELL. BP ELEVATED THROUGHOUT THIS SHIFT, PHYSICAN AWARE. AT BEDSIDE THROUGHOUT THIS SHIFT. AWAITING CHAIR TIME FOR DIALYSIS. PT IS PLEASANT AND COOPERATIVE WITH CARE AND CALLS APPROPRIATELY USING THE CALL LIGHT.
[2024-11-29] VITALS (17 sets, daily range): BP systolic 111–154; BP diastolic 51–64
--- NOTE | 2024-11-29 00:20 | NUR ---
PREVIOUS BP MACHINE READING 187/41. CONSULTED W/ REAL ESTATE ANALYST. REPEAT MANUAL BP TO BE DONE AROUND MIDNIGHT. MANUAL BP READING TAKEN BY AUTHOR WAS 128/54.
[2024-11-29 05:23] LABS: Hematocrit 29.2 % (37.0-53.0); Hemoglobin 9.5 g/dL (13.5-17.5)
[2024-11-29 06:15] LABS: Albumin, Blood 3.2 g/dL (3.4-5.0); Anion Gap 10 mmol/L (3-11); Blood Urea Nitrogen 49 mg/dL (8-24); CO2, Blood 27 mmol/L (21-32); Calcium, Blood 9.5 mg/dL (8.5-10.1); Chloride, Blood 103 mmol/L (98-108); Creatinine, Blood 5.10 mg/dL (0.60-1.20); Glucose, Blood 139 mg/dL (70-99); Magnesium, Blood 2.3 mg/dL (1.6-2.4); Phosphorus, Blood 4.3 mg/dL (2.5-4.9); Potassium, Blood 3.9 mmol/L (3.5-5.5); Sodium, Blood 136 mmol/L (136-145)
--- NOTE | 2024-11-29 07:45 | NUR ---
DUMP TRUCK OPERATOR SUMMARY PT A&OX4, VSS. USES CALL LIGHT AND ABLE TO COMMUNICATE NEEDS EFFECTIVELY. PT HAS BEEN ASLEEP ON AND OFF THIS SHIFT. EXPRESSED WORRY AND ANXIETY OVER CURRENT CONDITION AND GOING TO DIALSYSIS. PT REQUESTED MELATONIN TO HELP W/ SLEEP. ORDER OBTAINED, BUT WHEN AUTHOR RETURNED, PT ASLEEP. CHEST RISE/RESPIRATIONS NOTED. THEREFORE, MELATONIN NOT GIVEN. REMAINS ON TELE. SR AT 63. BED RAILS UP X 2, BED IN LOWEST POSITION, BED WHEELS LOCKED, PERSONAL BELONGINGS AND CALL LIGHT WITHIN REACH FOR SAFETY.
[2024-11-29 13:09] LABS: HEPATITIS A ANTIBODY, IGM Negative (Negative); HEPATITIS C AB CIA INTERP Negative (Negative); HEPATITIS C ANTIBODY CIA INDEX 0.11 IV
--- NOTE | 2024-11-29 18:40 | NUR ---
SHIFT SUMMARY PT IS A/OX4. INDEPENDENT IN THE ROOM. PT HAD DIALYSIS THIS MORNING, TOLERATING WELL. EXPECTING DIALYSIS AGAIN TOMORROW MORNING. ON TELE RUNNING SINUS RYTHYM/SINUS KACEY IN THE 50-60'S. AT BEDSIDE. AWAITING CHAIR TIME FOR DIALYSIS. PT IS PLEASANT AND COOPERATIVE WITH CARE AND CALLS APPROPRAITELY USING THE CALLS LIGHT.
[2024-11-30 03:11] VITALS: BP 133/60
--- NOTE | 2024-11-30 04:02 | NUR ---
COLLAR STITCHER SUMMARY PT A&OX4, VSS, EXCEPT SLIGHT HTN. USES CALL LIGHT APPROPRIATELY AND ABLE TO COMMUNICATE NEEDS WELL. MELATONIN ADMIN 1X W/ GOOD EFFECT. PT NOTED TO BE GETTING MORE SLEEP COMPARED TO LAST NIGHT AND ABLE TO TOELRATE SLEEPING IN BED W/ CPAP. CHEST RISE/RESPIRATIONS NOTED. REMAINS ON TELE. SR AT 62. BED RAILS UP X 2, BED IN LOWEST POSITION, BED WHEELS LOCKED, PERSONAL BELONGINGS AND CALL LIGHT WITHIN REACH FOR SAFETY.
[2024-11-30 05:10] LABS: Hematocrit 28.6 % (37.0-53.0); Hemoglobin 9.2 g/dL (13.5-17.5)
[2024-11-30 05:34] LABS: Albumin, Blood 3.0 g/dL (3.4-5.0); Anion Gap 8 mmol/L (3-11); Blood Urea Nitrogen 43 mg/dL (8-24); CO2, Blood 30 mmol/L (21-32); Calcium, Blood 9.1 mg/dL (8.5-10.1); Chloride, Blood 104 mmol/L (98-108); Creatinine, Blood 5.81 mg/dL (0.60-1.20); Glucose, Blood 149 mg/dL (70-99); Magnesium, Blood 2.3 mg/dL (1.6-2.4); Phosphorus, Blood 4.1 mg/dL (2.5-4.9); Potassium, Blood 3.9 mmol/L (3.5-5.5); Sodium, Blood 138 mmol/L (136-145)
[2024-11-30 08:02] VITALS: BP 131/51
--- NOTE | 2024-11-30 10:00 | NUR ---
MEDINA CLAMPED FOR BLADDER TRAINING.
[2024-11-30 15:54] VITALS: BP 156/59
--- NOTE | 2024-11-30 19:21 | NUR ---
SHIFT SUMMARY PT IS A/OX4. INDEPENDENT IN THE ROOM. NO ACUTE CHANGES THROUGHOUT THIS SHIFT. ON TELE RUNNING SINUS KACEY IN THE 50'S. AWAITING DIALYSIS CHAIR TIME. AT BEDSIDE THROUGHOUT THIS SHIFT. PT IS PLEASANT AND COOPERATIVE WITH CARE AND CALLS APPROPRIATELY USING THE CALL LIGHT.
[2024-11-30 19:56] VITALS: BP 167/58
[2024-11-30 23:57] VITALS: BP 138/56
[2024-12-01] VITALS (21 sets, daily range): BP systolic 124–178; BP diastolic 56–128
--- NOTE | 2024-12-01 04:02 | NUR ---
MOTORCOACH DRIVER SUMMARY PT A&OX4, VSS, EXCEPT HTN. ABLE TO EXPRESS NEEDS EFFECTIVELY. NO ACUTE CHANGES THIS SHIFT. PT STATED WAS ABLE TO GET GOOD SLEEP WITH MELATONIN LAST NIGHT. REQUESTED IT AGAIN THIS SHIFT FOR INSOMNIA. MELATONIN ADMIN 1X W/ GOOD EFFECT. SLEPT IN RECLINER FOR MOST OF THE SHIFT W/ CPAP ON. CHEST RISE/RESPIRATIONS NOTED. REMAINS ON TELE. SR AT 70 W/ BBB. AWAITING OUTPATIENT DIALYSIS APPOINTMENT TIME PER PROVIDER NOTE. BED RAILS UP X 2, BED IN LOWEST POSITION, BED WHEELS LOCKED, PERSONAL BELONGINGS AND CALL LIGHT WITHIN REACH FOR SAFETY.
[2024-12-01 05:44] LABS: Hematocrit 29.2 % (37.0-53.0); Hemoglobin 9.4 g/dL (13.5-17.5)
[2024-12-01 06:07] LABS: Albumin, Blood 3.2 g/dL (3.4-5.0); Anion Gap 10 mmol/L (3-11); Blood Urea Nitrogen 58 mg/dL (8-24); CO2, Blood 27 mmol/L (21-32); Calcium, Blood 9.2 mg/dL (8.5-10.1); Chloride, Blood 102 mmol/L (98-108); Creatinine, Blood 6.41 mg/dL (0.60-1.20); Glucose, Blood 173 mg/dL (70-99); Magnesium, Blood 2.3 mg/dL (1.6-2.4); Phosphorus, Blood 4.8 mg/dL (2.5-4.9); Potassium, Blood 4.0 mmol/L (3.5-5.5); Sodium, Blood 135 mmol/L (136-145)
--- NOTE | 2024-12-01 18:39 | NUR ---
SHIFT SUMMARY PATIENT ALERT AND ORIENTED X4, MAKE NEEDS KNOWN. VITAL SIGNS STABLE THROUGHOUT THE SHIFT. PATIENT WENT TO DIALYSIS TODAY AND TOLERATED WELL. MEDICATION ADMINISTERED PER EMAR. PATIENT PLEASANT AND RECEPTIVE DURING CARE. NO ACUTE CHANGE DURING THIS SHIFT. TOLERATING PO, VOIDING, AND DENIES PAIN. SELF REPOSITIONED THROUGHOUT SHIFT. BED LOCKED AND IN LOWEST POSITION. CALL LIGHT WITHIN REACH.
[2024-12-02 00:07] VITALS: BP 99/82
[2024-12-02 04:18] VITALS: BP 127/45
--- NOTE | 2024-12-02 04:20 | NUR ---
SHIFT SUMMARY PT IS A&OX4, PLEASANT AND COOPERTATIVE WITH CARE. PT HAD A DROP IN BP, THIS HAS NOW RESOLVED, OTHER VSS, PT TOLERATING PO INTAKE, AND IS ABLE TO AMBULATE SHORT DISTANCES WITH SBA. PT REPORTED MUSCLE CRAMPING EARLIER IN THE SHIFT. PT MOVED FROM CHAIR TO BED T/O SHIFT TO REST. PT WORE C-PAP WHEN ASLEEP. PT EDUCATED ON THE ABILITY FOR DIALYSIS TO DROP BP AND CAUSE MUSCLE CRAMPING. PT CURRENTLY RESTING IN BED, EVEN AND UNLABORED RESPIRATIONS, CALL LIGHT WITHIN REACH.
[2024-12-02 04:30] LABS: Hematocrit 29.6 % (37.0-53.0); Hemoglobin 9.6 g/dL (13.5-17.5)
[2024-12-02 04:51] LABS: Albumin, Blood 3.0 g/dL (3.4-5.0); Anion Gap 10 mmol/L (3-11); Blood Urea Nitrogen 42 mg/dL (8-24); CO2, Blood 30 mmol/L (21-32); Calcium, Blood 8.8 mg/dL (8.5-10.1); Chloride, Blood 97 mmol/L (98-108); Creatinine, Blood 6.42 mg/dL (0.60-1.20); Glucose, Blood 202 mg/dL (70-99); Magnesium, Blood 2.3 mg/dL (1.6-2.4); Phosphorus, Blood 4.6 mg/dL (2.5-4.9); Potassium, Blood 4.2 mmol/L (3.5-5.5); Sodium, Blood 133 mmol/L (136-145)
[2024-12-02 07:36] VITALS: BP 114/54
[2024-12-02 11:46] VITALS: BP 136/60
[2024-12-02 16:21] VITALS: BP 133/50
--- NOTE | 2024-12-02 17:11 | NUR ---
SUMMARY- PT A/O X4, INDEPENDANT IN ROOM. NO DIALYSIS TODAY. VSS, NO DIAPHORETIC EPISODES LIKE REPORTED LAST NIGHT. PT SAT UP IN THE CHAIR ALL DAY, TOLERATING FOOD AND FLUIDS. PLAN FOR DYALISIS TOMORROW, THAN TO DC TOMORROW AFTER HD. HE NOW HAS A DIALYSIS CHAIR , , SAT IN [place]. WILL REPORT TO NOC RN
[2024-12-02 21:02] VITALS: BP 150/61
[2024-12-03] VITALS (16 sets, daily range): BP systolic 107–189; BP diastolic 42–88
[2024-12-03 04:48] LABS: Hematocrit 28.8 % (37.0-53.0); Hemoglobin 9.2 g/dL (13.5-17.5)
--- NOTE | 2024-12-03 04:54 | NUR ---
SHIFT SUMMARY PT IS A&OX4, PLEASANT AND COOPERATIVE WITH CARE. PT IS INDEPENDENT IN THE ROOM, INTERMITTENTLY SBA DUE TO CORDS OR WEAKNESS. PT RECIEVED A CHAIR AT A DIALYSIS CENTER IN [facility]. PT AWAITING D/C AFTER DIALYSIS TODAY. HE WORE HIS C-PAP T/O SHIFT WHILE ASLEEP. BP SOFT T/O SHIFT, OTHER VSS. PT LAYING IN BED WITH EVEN AND UNLABORED RESPIRATIONS, CALL LIGHT WITHIN REACH.
[2024-12-03 05:13] LABS: Albumin, Blood 3.0 g/dL (3.4-5.0); Anion Gap 11 mmol/L (3-11); Blood Urea Nitrogen 53 mg/dL (8-24); CO2, Blood 30 mmol/L (21-32); Calcium, Blood 8.7 mg/dL (8.5-10.1); Chloride, Blood 96 mmol/L (98-108); Creatinine, Blood 7.17 mg/dL (0.60-1.20); Glucose, Blood 167 mg/dL (70-99); Phosphorus, Blood 5.5 mg/dL (2.5-4.9); Potassium, Blood 3.9 mmol/L (3.5-5.5); Sodium, Blood 133 mmol/L (136-145)
--- NOTE | 2024-12-03 10:09 | NUR ---
Patient transported via bed to dialysis at 0920. Spouse in and out of patient room. Will await call from Dialysis regarding patient status and return to room after treatment completed.
[2024-12-03] MEDS ORDERED: LOSA25 PO (11:20)
[2024-12-03] MEDS ORDERED: NEPHRO VITAMIN0.8 MG PO (11:23)
[2024-12-03] MEDS ORDERED: SEVEC800 PO (11:23)
[2024-12-03] MEDS ORDERED: MIRALAX17 GM PO (11:25)
[2024-12-03] MEDS ORDERED: HUMALOG KW100 UNIT/1 SC (11:25)
--- NOTE | 2024-12-03 13:23 | NUR ---
Patient discharged home with spouse. All instructions/education discussed with patient and spouse prior to leaving. Patient rx's faxed to [facility] in [place] per preference. All belongings bagged and in patient possession at time of leaving. Patient transported self via wheelchair to front entrance at 1300.
== END 2024-12-03 13:21 | disposition home or self-care (01) | DRG 291 ==
LOC: ER 11:38 → MEDS 11:39
PROVIDERS: Internal Medicine; Internal Medicine Nephrology; Student in an Organized Health Care Education/Training Program; ADMIT Internal Medicine
PROC: 0JH60XZ Insertion of Tunneled Vascular Access Device into Chest Subcutaneous Tissue and Fascia, Open Approach (ICD-10-PCS; 2024-11-27)
PROC: 02HV33Z Insertion of Infusion Device into Superior Vena Cava, Percutaneous Approach (ICD-10-PCS; 2024-11-27)
PROC: 5A1D70Z Performance of Urinary Filtration, Intermittent, Less than 6 Hours Per Day (ICD-10-PCS; principal; 2024-11-28)
DX: I13.2 Hypertensive heart and chronic kidney disease with heart failure and with stage 5 chronic kidney disease, or end stage renal disease (principal); N18.6 End stage renal disease; E87.1 Hypo-osmolality and hyponatremia; Z99.2 Dependence on renal dialysis; E87.70 Fluid overload, unspecified; E11.22 Type 2 diabetes mellitus with diabetic chronic kidney disease; G47.33 Obstructive sleep apnea (adult) (pediatric); E66.01 Morbid (severe) obesity due to excess calories; D63.1 Anemia in chronic kidney disease; E78.5 Hyperlipidemia, unspecified; I50.9 Heart failure, unspecified; E88.09 Other disorders of plasma-protein metabolism, not elsewhere classified; E11.21 Type 2 diabetes mellitus with diabetic nephropathy; E11.42 Type 2 diabetes mellitus with diabetic polyneuropathy; M10.9 Gout, unspecified; Z79.4 Long term (current) use of insulin; Z79.82 Long term (current) use of aspirin; Z79.899 Other long term (current) drug therapy; Z98.890 Other specified postprocedural states; Z88.8 Allergy status to other drugs, medicaments and biological substances
CPT/HCPCS: 36415; 36558; 71046; 76937; 77001; 80069; 80074; 81001; 82947; 83036; 83735; 84132; 85014; 85018; 93005; 93010; 94760; 94762; 99152; 99284-25; A9270; C1750; C1769; C1894; G0378; J0881; J1644; J2250; J3010; J7040; J7050